=== PATIENT | female | born 1950 | race Caucasian/White ===

== ENCOUNTER 2019-09-24 18:04 | Emergency (ER) | payer MEDICARE, SELFPAY ==
--- NOTE | 2019-09-24 18:09 | CTR_ITS ---
PROCEDURE INFORMATION: Exam: CT Head Without Contrast Exam date and time: 09/24/2019 6:13 PM Age: 68 years old Clinical indication: Pain; Dizziness and numbness / parasthesia; Right; Headache TECHNIQUE: Imaging protocol: Computed tomography of the head without contrast. Total DLP: 762.97 mGy-cm Radiation optimization: All CT scans at this facility use at least one of these dose optimization techniques: automated exposure control; mA and/or kV adjustment per patient size (includes targeted exams where dose is matched to clinical indication); or iterative reconstruction. COMPARISON: No relevant prior studies available. FINDINGS: Small calcified lesion projecting in right temporal region may be extra-axial and represent meningioma. There is small amount of adjacent edema. There is mild low density in the periventricular white matter which may represent chronic small vessel ischemic disease in the appropriate clinical setting. There are prominent intracranial arterial calcifications. Mild basal ganglia calcifications are likely physiologic. There is mild cerebral cortical atrophy. Ventricles do not appear significantly dilated. No depressed calvarial fracture is demonstrated. Visualized paranasal sinuses and mastoid air cells demonstrate no significant opacification. CT/CT head wo con* [id number] IMPRESSION: Small calcified lesion projecting in right temporal region may be extra-axial and represent meningioma. There is small amount of adjacent edema. Follow-up MRI brain without/with IV contrast in 3 months is advised for further assessment if patient has no contraindications. Radiation Dose CTDIVOL = (mGy): DLP = 762.97 (mGy-cm)
[2019-09-24 18:44] VITALS: BP 141/63; PULSE 77; RESP 20; TEMP 36.8; O2SAT 96; BMI 24.4
--- NOTE | 2019-09-24 21:08 | ECG_ITS ---
Measurements Intervals [place] Rate: 64 P: 25 NC: 139 QRS: -1 QRSD: 71 T: -3 QT: 382 QTc: 395 SINUS RHYTHM MINIMAL VOLTAGE CRITERIA FOR LVH, CONSIDER NORMAL VARIANT [MEETS CRITERIA IN ONE OF: R(aVL), S(V1), R(V5), R(V5/V6)+S(V1)] NONSPECIFIC T-WAVE ABNORMALITY No previous ECG available for comparison Electronically Signed On 09-25-2019 14:38:25 AUTO TIRE RECAPPER by Orion Angel M.D. [email or web address]
--- NOTE | 2019-09-24 21:11 | W.ED.DIZZY ---
HPI - Dizziness General: Chief Complaint: Dizziness Stated Complaint: barnett,numbness Time Seen by Provider: 09/24/19 20:50 History of Present Illness: HPI Narrative: Patient complains about numbness right side of her face numbness right arm and also headache over the last 10 days. Has a history of cervical degenerative disc disease. Patient is also diabetic. Headache is not gone away. Does have some dizziness with rapid head movement. MD elicited complaint: dizziness Onset (ago): day(s) (10) Timing: gradual onset Exacerbating factors: movement/ambulation Associated symptoms: Reports no associated symptoms and headache(s); Denies chest pain, chills, nausea, nasal congestion or vomiting Associated neuro symptoms: Reports no associated symptoms Review of Systems Const: Denies: fever, chills or body aches Eyes: Denies: change in vision or blurry vision ENMT: Denies: throat pain or nasal congestion Card: Denies: chest pain or shortness of breath on exertion Resp: Denies: shortness of breath, productive cough or non-productive cough GI: Denies: abdominal pain, nausea or vomiting Musc: Reports: neck pain (chronic); Denies: extremity pain Skin/Breast: Denies: rash Neuro: Reports: headache and dizziness Psych: Denies: anxiety or depression Kalin/Lymph: Denies: easy bruising PFSH ED PFSH: Statuses (acute, chronic, etc) shown below reflect problem list status as previously entered and may not be historically accurate Social History Smoking and tobacco status: never smoked Physical Exam Const: COMMON NORMALS: no apparent distress, average body habitus and oriented x3 HENMT: COMMON NORMALS: normocephalic HEAD & SCALP: normal to inspection and normocephalic FACE & SINUS: normal facial exam Eye: COMMON NORMALS: conjunctivae normal GENERAL EYE: normal appearance of both eyes CONJUNCTIVA: Yes conjunctivae normal Neck/C-Spine: COMMON NORMALS: no JVD Chest: COMMONS NORMALS: inspection of chest normal Resp: COMMON NORMALS: normal respiratory effort and clear to auscultation bilaterally AUSCULTATION: clear to auscultation bilaterally Cardio: COMMON NORMALS: no JVD, regular rate and regular rhythm RATE: regular rate RHYTHM: regular rhythm GI: COMMON NORMALS: normal to inspection, nondistended, normoactive bowel sounds Extremity: COMMON NORMALS: normal to inspection and full ROM Neuro: COMMON NORMALS: oriented x3 Course Vital Signs: Vital signs: Vital Signs Temperature 98.2 F 09/24/19 18:44 Pulse Rate 77 09/24/19 18:44 Respiratory Rate 20 H 09/24/19 18:44 Blood Pressure 141/63 09/24/19 18:44 Pulse Oximetry 96 09/24/19 18:44 MDM - Dizziness MDM Narrative: Medical decision making narrative: Discussed case with Dr. Nixon. Waiting call from [facility] in [place]. Lab Data: Labs: Lab Results 09/24/19 09/24/19 Range/Units 21:15 21:15 WBC 12.0 H (4.0-10.0) 10^3/ uL RBC 4.43 (4.1-5.3) 10^6/u L Hgb 12.3 (11.5-15.3) g/dL Hct 36.9 L (37.0-47.0) % MCV 83.3 (81-99) fL MCH 27.8 L (28.0-34.0) pg MCHC 33.3 (30.0-36.0) g/dL RDW 13.7 (12.1-15.1) % Plt Count 488 H (130-400) 10^3/c mm MPV 9.6 (7.4-10.4) fL Neut % (Auto) 77.7 % Lymph % (Auto) 16.8 % [place] % (Auto) 4.4 % Eos % (Auto) 0.1 % Baso % (Auto) 0.3 % Neut # (Auto) 9.3 H (1.8-7.7) 10^3/u L Lymph # (Auto) 2.0 (0.8-4.8) 10^3/u L [place] # (Auto) 0.5 (0.2-0.9) 10^3/u L Eos # (Auto) 0.0 (0.0-0.8) 10^3/u L Baso # (Auto) 0.0 (0.0-0.1) 10^3/u L Nucleated RBC % (a uto) 0 % Nucleated RBCs # 0.0 /100WBC Sodium 137 (136-145) mmol/L Potassium 4.3 (3.5-5.1) mmol/L Chloride 102 (98-107) mmol/L Carbon Dioxide 23 (22-29) mmol/L Anion Gap 16.3 (5-19) BUN 19 (8-23) mg/dL Creatinine 0.5 (0.5-0.9) mg/dL GFR Calculation 122.0 (90-130) mL/min Glucose 164 H (74-106) mg/dL Calcium 10.4 H (8.8-10.2) mg/Dl Total Bilirubin 0.2 (0.15-1.2) mg/dL AST 16 (0-32) U/L ALT 8 (0-33) U/L Alkaline Phosphata se 96 (35-105) IU/L Total Protein 7.7 (6.6-8.7) g/dL Albumin 4.5 (3.5-5.2) g/dL Globulin 3.2 (1.3-4.6) g/dL Coding Level of Care Code ED Mine Exploration Engineer for Chg Fwd Exam Problem Focused
[2019-09-24 21:20] LABS: Basophils % 0.3 %; Eosinophils % 0.1 %; Hematocrit 36.9 % (37.0-47.0); Hemoglobin 12.3 g/dL (11.5-15.3); Lymphocytes % 16.8 %; Mean Corpuscular HGB Conc 33.3 g/dL (30.0-36.0); Mean Corpuscular Hemoglobin 27.8 pg (28.0-34.0); Mean Corpuscular Volume 83.3 fL (81-99); Mean Platelet Volume 9.6 fL (7.4-10.4); Monocytes # 0.5 10^3/uL (0.2-0.9); Monocytes % 4.4 %; Neutrophils # 9.3 10^3/uL (1.8-7.7); Neutrophils % 77.7 %; Nucleated Red Blood Cells % 0 %; Platelet Count 488 10^3/cmm (130-400); Red Blood Count 4.43 10^6/uL (4.1-5.3); Red Cell Distribution Width 13.7 % (12.1-15.1)
[2019-09-24 21:37] LABS: Alanine Aminotransferase 8 U/L (0-33); Albumin Level 4.5 g/dL (3.5-5.2); Alkaline Phosphatase 96 IU/L (35-105); Anion Gap 16.3 (5-19); Aspartate Amino Transferase 16 U/L (0-32); Blood Urea Nitrogen 19 mg/dL (8-23); Calcium 10.4 mg/Dl (8.8-10.2); Carbon Dioxide 23 mmol/L (22-29); Chloride 102 mmol/L (98-107); Globulin 3.2 g/dL (1.3-4.6); Glucose 164 mg/dL (74-106); Potassium 4.3 mmol/L (3.5-5.1); Sodium 137 mmol/L (136-145); Total Bilirubin 0.2 mg/dL (0.15-1.2); Total Protein 7.7 g/dL (6.6-8.7)
[2019-09-24] MEDS: ondansetron 4 MG Tablet PO (22:18)
[2019-09-24 22:29] LABS: Add Urine Microscopic? NO
[2019-09-24 22:42] LABS: Bilirubin Urine Neg (NEGATIVE); Blood Urine Neg (Negative); Glucose Urine UA Norm (Normal); Ketones Urine Negative (Negative); Leukocyte Esterase Urine Negative (Negative); Nitrate Urine Negative (Negative); Protein Urine Neg (Negative); Urine Appearance Clear (CLEAR); Urine Color Yellow (Yellow); Urobilinogen Urine Norm (Negative); pH Urine 6 (5-7)
[2019-09-24 22:59] VITALS: BP 146/73; PULSE 71; RESP 16; O2SAT 95
[2019-09-24 23:39] VITALS: BP 141/74; PULSE 68; RESP 18; O2SAT 97
--- NOTE | 2019-09-25 00:59 | ED_ITS ---
HPI - Dizziness General: Chief Complaint: Dizziness Stated Complaint: barnett,numbness Time Seen by Provider: 09/24/19 20:50 History of Present Illness: Exacerbating factors: movement/ambulation PFSH ED PFSH: Statuses (acute, chronic, etc) shown below reflect problem list status as previously entered and may not be historically accurate Social History Smoking and tobacco status: never smoked Course Vital Signs: Vital signs: Vital Signs Temperature 98.2 F 09/24/19 18:44 Pulse Rate 68 09/24/19 23:39 Respiratory Rate 18 09/24/19 23:39 Blood Pressure 141/74 09/24/19 23:39 Pulse Oximetry 97 09/24/19 23:39 MDM - Dizziness MDM Narrative: Medical decision making narrative: Discussed case with Dr. Nixon x2 Lab Data: Labs: Lab Results 09/24/19 09/24/19 09/24/19 Range/Units 21:15 21:15 22:12 WBC 12.0 H (4.0-10.0) 10^3/ uL RBC 4.43 (4.1-5.3) 10^6/u L Hgb 12.3 (11.5-15.3) g/dL Hct 36.9 L (37.0-47.0) % MCV 83.3 (81-99) fL MCH 27.8 L (28.0-34.0) pg MCHC 33.3 (30.0-36.0) g/dL RDW 13.7 (12.1-15.1) % Plt Count 488 H (130-400) 10^3/c mm MPV 9.6 (7.4-10.4) fL Neut % (Auto) 77.7 % Lymph % (Auto) 16.8 % [place] % (Auto) 4.4 % Eos % (Auto) 0.1 % Baso % (Auto) 0.3 % Neut # (Auto) 9.3 H (1.8-7.7) 10^3/u L Lymph # (Auto) 2.0 (0.8-4.8) 10^3/u L [place] # (Auto) 0.5 (0.2-0.9) 10^3/u L Eos # (Auto) 0.0 (0.0-0.8) 10^3/u L Baso # (Auto) 0.0 (0.0-0.1) 10^3/u L Nucleated RBC % (a uto) 0 % Nucleated RBCs # 0.0 /100WBC Sodium 137 (136-145) mmol/L Potassium 4.3 (3.5-5.1) mmol/L Chloride 102 (98-107) mmol/L Carbon Dioxide 23 (22-29) mmol/L Anion Gap 16.3 (5-19) BUN 19 (8-23) mg/dL Creatinine 0.5 (0.5-0.9) mg/dL GFR Calculation 122.0 (90-130) mL/min Glucose 164 H (74-106) mg/dL Calcium 10.4 H (8.8-10.2) mg/Dl Total Bilirubin 0.2 (0.15-1.2) mg/dL AST 16 (0-32) U/L ALT 8 (0-33) U/L Alkaline Phosphata se 96 (35-105) IU/L Total Protein 7.7 (6.6-8.7) g/dL Albumin 4.5 (3.5-5.2) g/dL Globulin 3.2 (1.3-4.6) g/dL Urine Color Yellow (Yellow) Urine Appearance Clear (CLEAR) Urine pH 6 (5-7) Ur Specific Gravit y 1.020 (1.005-1.030) Urine Protein Neg (Negative) Urine Glucose (UA) Norm (Normal) Urine Ketones Negative (Negative) Urine Occult Blood Neg (Negative) Urine Nitrate Negative (Negative) Urine Bilirubin Neg (NEGATIVE) Urine Urobilinogen Norm (Negative) mg/dL Ur Leukocyte Melissa ase Negative (Negative) Other Data: Other data: Discuss case with Dr. Owens bring up in [place] had to conversation with him he advises to have patient follow-up at PCP to get the MRI in 2 weeks to 2 months Discharge Plan Discharge Condition: Stable Prescriptions: New Zithromax Z-Higinio 250 mg tablet See Rx Instructions .ROUTE .COMPLEX Qty: 6 RF: 0 Zofran 4 mg tablet 4 mg PO Q8H 4 Days Qty: 12 RF: 0 Discharge Orders: Discharge Order (Routine); Ordered 09/24/19 Ordered By: Rigoberto Mejia Referrals: Emile Lua MD [Family Provider] - Discharge Diet: Usual diet Discharge Activity: Resume usual activity Patient Instructions: Meningioma (ED) Activity Restrictions/Additional Instructions: Follow-up with medical provider as directed. Take medications as prescribed. Return to the ER are your medical provider if condition worsens. Read and understand discharge instructions. Follow-up with [facility] for MRI the need to be performed in next 2weeks 2 months as per [facility] neurologist. Discharge Date/Time: 09/24/19 23:45 Coding Level of Care Code ED Celebrity Chef Entrepreneur Media Personality for Magno Berrios
== END 2019-09-24 23:45 ==
PROVIDERS: Nurse Practitioner Family; Emergency Provider Emergency Medicine; Family Provider Family Medicine
DX: R42 Dizziness and giddiness (principal)
CPT/HCPCS: 36415; 70450; 80053; 81003; 85025; 93005; 99282; Q0162

== ENCOUNTER 2023-04-02 21:43 | Emergency (ER) | payer MEDICARE, SELFPAY ==
[2023-04-02 21:45] VITALS: BP 145/71; PULSE 80; RESP 16; TEMP 36.7; O2SAT 95; BMI 18.9
--- NOTE | 2023-04-02 21:54 | W.ED.HA ---
Documented by User: Jan Lemus MD 04/10/23 11:52 HPI - Headache General: Chief Complaint: Headache Stated Complaint: Head Ache Time Seen by Provider: 04/02/23 21:53 History of Present Illness: Ms. Grossman is a 72-year-old lady presenting to the emergency department for evaluation of headache. She does not have frequent history of headaches. Onset of symptoms acute without known specific provoking event on the morning of 03/31. Described an unsteady drunk like feeling associated with posterior headache. Since that time symptoms have persisted. Intermittently has had nausea and generalized malaise. No focal weakness or vision changes. Denies other signs systemic illness. Intensity symptoms is moderate to severe. No other specific changes in health, exacerbating, or alleviating factors identified. Per review of documentation patient had a CT head in September 2019 which showed mild abnormality and recommended 3-month follow-up with MRI. She does not recall being told about this and did not have an outpatient MRI. Onset (ago): day(s) Onset description: suddenly Location: occipital Quality & Timing: squeezing and pressure Exacerbating factors: none Relieving factors: nothing Review of Systems General: Reports: 10 or more systems reviewed and unremarkable except in HPI and below PFSH ED PFSH: Medical History (Updated 04/02/23 @ 22:45 by Jan Lemus MD) No significant past medical history Surgical History (Updated 04/02/23 @ 22:17 by Jan Lemus MD) No significant past surgical history Social History Smoking and tobacco status: never smoked Physical Exam Const: COMMON NORMALS: patient oriented x3 and alert GENERAL APPEARANCE: cooperative and well developed HENMT: COMMON NORMALS: normocephalic and atraumatic HEAD & SCALP: normocephalic and atraumatic THROAT: posterior oropharynx normal Eye: COMMON NORMALS: conjunctivae normal CONJUNCTIVA: Yes conjunctivae normal SCLERA: sclerae normal Neck/C-Spine: COMMON NORMALS: supple GENERAL: Yes trachea midline Resp: COMMON NORMALS: normal respiratory effort and clear to auscultation bilaterally EFFORT & INSPECTION: Yes able to speak in complete sentences AUSCULTATION: clear to auscultation bilaterally Cardio: COMMON NORMALS: regular rate and regular rhythm RATE: regular rate RHYTHM: regular rhythm GI: COMMON NORMALS: Soft to palpation PALPATION: Yes Soft to palpation and No Tenderness to palpation present (GI) Extremity: GENERAL: Yes normal exam except as noted and No edema Neuro: COMMON NORMALS: patient oriented x3, CN's II-XII intact bilaterally, moves all extremities, no focal motor deficits and no sensory deficits noted SENSORIUM/ORIENTATION: Yes alert and No Orientation impaired Psych: COMMON NORMALS: mental status grossly normal and Normal thought process present THOUGHT PROCESS: Normal thought process present Course Vital Signs: Vital signs: Vital Signs Temperature 98.0 F 04/02/23 21:45 Pulse Rate 80 04/02/23 21:45 Respiratory Rate 16 04/02/23 21:45 Blood Pressure 145/71 04/02/23 21:45 Pulse Oximetry 95 04/02/23 21:45 Oxygen Delivery Me thod Room Air 04/02/23 21:45 MDM - Headache Medical Decision Making 72-year-old lady presenting with headache. Exam as above. Patient is nontoxic and there are no focal neurologic deficits. No meningismus Laboratory studies and imaging ordered. Headache treatment ordered. Handed off to Dr. Henning pending completion of ED evaluation and reassessment of patient condition for disposition. Medical Records I reviewed the patient's medical records. Lab Data I reviewed the patient's lab results. 04/02/23 22:46 04/02/23 22:[address] 04/02/23 22:06 IMPRESSION: 1. No acute abnormality of the brain. 2. Stable partially calcified meningioma in the right middle cranial fossa. Mild localized surrounding edema is also stable. 3. Stable mild atrophy of the brain parenchyma. 4. Stable mild chronic white matter microangiopathic change. 5. Incidental/nonacute findings are listed in the report. Laboratory Results WBC 10.5 10^3/uL (4.0-10.0) H 04/02/23 22:46 RBC 4.50 10^6/uL (4.1-5.3) 04/02/23 22:46 Hgb 12.2 g/dL (11.5-15.3) 04/02/23 22:46 Hct 37.8 % (37.0-47.0) 04/02/23 22:46 MCV 84.0 fl (81-99) 04/02/23 22:46 MCH 27.1 pg (28.0-34.0) L 04/02/23 22:46 MCHC 32.3 g/dL (30.0-36.0) 04/02/23 22:46 RDW 15.5 % (12.1-15.1) H 04/02/23 22:46 Plt Count 448 10^3/cmm (130-400) H 04/02/23 22:46 MPV 10.5 fL (7.4-10.4) H 04/02/23 22:46 Neut % (Auto) 51.9 % 04/02/23 22:46 Lymph % (Auto) 35.8 % 04/02/23 22:46 Cass % (Auto) 9.6 % 04/02/23 22:46 Eos % (Auto) 1.7 % 04/02/23 22:46 Baso % (Auto) 0.7 % 04/02/23 22:46 Neut # (Auto) 5.44 10^3/uL (1.8-7.7) 04/02/23 22:46 Lymph # (Auto) 3.8 10^3/uL (0.8-4.8) 04/02/23 22:46 Cass # (Auto) 1.0 10^3/uL (0.2-0.9) H 04/02/23 22:46 Eos # (Auto) 0.2 10^3/uL (0.0-0.8) 04/02/23 22:46 Baso # (Auto) 0.1 10^3/uL (0.0-0.1) 04/02/23 22:46 Nucleated RBC % (auto) 0 % 04/02/23 22:46 Nucleated RBCs # 0.0 /100WBC 04/02/23 22:46 Sodium 139 mmol/L (136-145) 04/02/23 22:46 Potassium 3.9 mmol/L (3.5-5.1) 04/02/23 22:46 Chloride 105 mmol/L (98-107) 04/02/23 22:46 Carbon Dioxide 25 mmol/L (22-29) 04/02/23 22:46 Anion Gap 12.9 (5-19) 04/02/23 22:46 BUN 22 mg/dL (8-23) 04/02/23 22:46 Creatinine 0.8 mg/dL (0.5-0.9) 04/02/23 22:46 GFR Calculation Not Reportable 04/02/23 22:46 Glucose 170 mg/dL (65-115) H 04/02/23 22:46 Calculated Osmolality 295 mOsm/kg (285-295) 04/02/23 22:46 Calcium 9.7 mg/dL (8.5-10.5) 04/02/23 22:46 Magnesium 2.2 mg/dL (1.7-2.3) 04/02/23 22:46 Total Bilirubin 0.2 mg/dL (0.15-1.2) 04/02/23 22:46 AST 18 U/L (0-32) 04/02/23 22:46 ALT 14 U/L (0-33) 04/02/23 22:46 Alkaline Phosphatase 92 U/L (35-105) 04/02/23 22:46 C-Reactive Protein 3.0 mg/L (0.0-4.9) 04/02/23 22:46 Total Protein 7.5 g/dL (6.6-8.7) 04/02/23 22:46 Albumin 4.3 g/dL (3.5-5.2) 04/02/23 22:46 Globulin 3.2 g/dL (1.3-4.6) 04/02/23 22:46 TSH 2.66 uIU/mL (0.27-4.20) 04/02/23 22:46 Urine Color Light yellow (Yellow) 04/02/23 23:25 Urine Appearance Clear (CLEAR) 04/02/23 23:25 Urine pH 7 (5-7) 04/02/23 23:25 Ur Specific [place] 1.010 (1.005-1.030) 04/02/23 23:25 Urine Protein Neg (Negative) 04/02/23 23:25 Urine Glucose (UA) 4+ (Normal) H 04/02/23 23:25 Urine Ketones Negative (Negative) 04/02/23 23:25 Urine Blood Neg (Negative) 04/02/23 23:25 Urine Nitrate Negative (Negative) 04/02/23 23:25 Urine Bilirubin Neg (Negative) 04/02/23 23:25 Urine Urobilinogen Neg mg/dL (Negative) 04/02/23 23:25 Ur Leukocyte Esterase 1+ (Negative) H 04/02/23 23:25 Urine RBC None /hpf (0-2) 04/02/23 23:25 Urine WBC 0-4 /hpf (0-5) H 04/02/23 23:25 Ur Squamous Epith Cells None /hpf (0-5) 04/02/23 23:25 Amorphous Sediment Not Reportable 04/02/23 23:25 Urine Bacteria Trace /hpf (NONE) 04/02/23 23:25 Nasal Influ A H1 2009 PCR Not detected (NOT DETECT) 04/02/23 23:14 Adenovirus (PCR) Not detected (NOT DETECT) 04/02/23 23:14 C. pneumoniae DNA (PCR) Not detected (NOT DETECT) 04/02/23 23:14 Coronavirus 229E (PCR) Not detected (NOT DETECT) 04/02/23 23:14 Human Metapneumovir PCR Not detected (NOT DETECT) 04/02/23 23:14 Influenza A (H1) PCR Not detected (NOT DETECT) 04/02/23 23:14 Influenza A (H3) PCR Not detected (NOT DETECT) 04/02/23 23:14 Influenza Type A (PCR) Not detected (NOT DETECT) 04/02/23 23:14 Influenza Type B (PCR) Not detected (NOT DETECT) 04/02/23 23:14 M. pneumoniae (PCR) Not detected (NOT DETECT) 04/02/23 23:14 Parainfluenza 1 (PCR) Not detected (NOT DETECT) 04/02/23 23:14 Parainfluenza 2 (PCR) Not detected (NOT DETECT) 04/02/23 23:14 Parainfluenza 3 (PCR) Not detected (NOT DETECT) 04/02/23 23:14 Parainfluenza 4 (PCR) Not detected (NOT DETECT) 04/02/23 23:14 RSV Type A (PCR) Not detected (NOT DETECT) 04/02/23 23:14 RSV Type B (PCR) Not detected (NOT DETECT) 04/02/23 23:14 Entero/Rhino (PCR) Not detected (NOT DETECT) 04/02/23 23:14 SARS-CoV-2 (PCR) Not detected (NOT DETECT) 04/02/23 23:14 Discharge Plan Discharge Patient Disposition: Home Clinical Impression: Headache Condition: Stable Prescriptions: No Action Zithromax Z-Higinio 250 mg tablet See Rx Instructions .ROUTE .COMPLEX Qty: 6 0RF Rx Instructions: take 500 mg today (day 1), then 250 mg for 4 days (days 2-5) Discharge Orders: Discharge ED (Routine); Ordered 04/03/23 Ordered By: Severo Henning Referrals: Emile Lua MD [Staff Physician] - Discharge Diet: Usual diet Discharge Activity: Increase activity as tolerated Patient Instructions: Acute Headache (ED), Opioid Safety, Pain Management Activity Restrictions/Additional Instructions: Thank you for visiting the emergency department. You were seen and evaluated for headache. We are pleased that you had improvement with treatment in the emergency department. Ensure that you are staying hydrated. You may use [id number] medications such as acetaminophen and ibuprofen for pain however please do not exceed the daily recommended dosage as listed on the packaging and please keep in mind that many namebrand medications contain the same active ingredients. Please avoid these medications if previously instructed to do so by another physician due to other underlying medical condition. Follow-up with a primary care provider. Return for uncontrolled symptoms, any new neurologic symptoms, inability to tolerate oral intake, fevers, neck stiffness, or anything else that you are concerned about and feel needs emergency department evaluation. Coding Level of Care Code ED Social Welfare Administrator for [facility] Documented by User: Severo Henning MD 04/03/23 00:37 HPI - Headache General: Chief Complaint: Headache Stated Complaint: Head Ache Time Seen by Provider: 04/02/23 21:53 [facility] ED PFSH: Medical History (Updated 04/02/23 @ 22:45 by Jan Lemus MD) No significant past medical history Surgical History (Updated 04/02/23 @ 22:17 by Jan Lemus MD) No significant past surgical history Social History Smoking and tobacco status: never smoked Course Vital Signs: Vital signs: Vital Signs Temperature 98.0 F 04/02/23 21:45 Pulse Rate 80 04/02/23 21:45 Respiratory Rate 16 04/02/23 21:45 Blood Pressure 145/71 04/02/23 21:45 Pulse Oximetry 95 04/02/23 21:45 Oxygen Delivery Me thod Room Air 04/02/23 21:45 MDM - Headache Medical Decision Making 72-year-old lady presenting with headache. Exam as above. Patient is nontoxic and there are no focal neurologic deficits. No meningismus Laboratory studies and imaging ordered. Headache treatment ordered. Handed off to Dr. Henning pending completion of ED evaluation and reassessment of patient condition for disposition. Patient presents here with headache head CT blood work are all normal patient stable for discharge patient follow-up PCP and return if worsening Lab Data 04/02/23 22:46 04/02/23 22:[address] 04/02/23 22:06 IMPRESSION: 1. No acute abnormality of the brain. 2. Stable partially calcified meningioma in the right middle cranial fossa. Mild localized surrounding edema is also stable. 3. Stable mild atrophy of the brain parenchyma. 4. Stable mild chronic white matter microangiopathic change. 5. Incidental/nonacute findings are listed in the report. Laboratory Results WBC 10.5 10^3/uL (4.0-10.0) H 04/02/23 22:46 RBC 4.50 10^6/uL (4.1-5.3) 04/02/23 22:46 Hgb 12.2 g/dL (11.5-15.3) 04/02/23 22:46 Hct 37.8 % (37.0-47.0) 04/02/23 22:46 MCV 84.0 fl (81-99) 04/02/23 22:46 MCH 27.1 pg (28.0-34.0) L 04/02/23 22:46 MCHC 32.3 g/dL (30.0-36.0) 04/02/23 22:46 RDW 15.5 % (12.1-15.1) H 04/02/23 22:46 Plt Count 448 10^3/cmm (130-400) H 04/02/23 22:46 MPV 10.5 fL (7.4-10.4) H 04/02/23 22:46 Neut % (Auto) 51.9 % 04/02/23 22:46 Lymph % (Auto) 35.8 % 04/02/23 22:46 Cass % (Auto) 9.6 % 04/02/23 22:46 Eos % (Auto) 1.7 % 04/02/23 22:46 Baso % (Auto) 0.7 % 04/02/23 22:46 Neut # (Auto) 5.44 10^3/uL (1.8-7.7) 04/02/23 22:46 Lymph # (Auto) 3.8 10^3/uL (0.8-4.8) 04/02/23 22:46 Cass # (Auto) 1.0 10^3/uL (0.2-0.9) H 04/02/23 22:46 Eos # (Auto) 0.2 10^3/uL (0.0-0.8) 04/02/23 22:46 Baso # (Auto) 0.1 10^3/uL (0.0-0.1) 04/02/23 22:46 Nucleated RBC % (auto) 0 % 04/02/23 22:46 Nucleated RBCs # 0.0 /100WBC 04/02/23 22:46 Sodium 139 mmol/L (136-145) 04/02/23 22:46 Potassium 3.9 mmol/L (3.5-5.1) 04/02/23 22:46 Chloride 105 mmol/L (98-107) 04/02/23 22:46 Carbon Dioxide 25 mmol/L (22-29) 04/02/23 22:46 Anion Gap 12.9 (5-19) 04/02/23 22:46 BUN 22 mg/dL (8-23) 04/02/23 22:46 Creatinine 0.8 mg/dL (0.5-0.9) 04/02/23 22:46 GFR Calculation Not Reportable 04/02/23 22:46 Glucose 170 mg/dL (65-115) H 04/02/23 22:46 Calculated Osmolality 295 mOsm/kg (285-295) 04/02/23 22:46 Calcium 9.7 mg/dL (8.5-10.5) 04/02/23 22:46 Magnesium 2.2 mg/dL (1.7-2.3) 04/02/23 22:46 Total Bilirubin 0.2 mg/dL (0.15-1.2) 04/02/23 22:46 AST 18 U/L (0-32) 04/02/23 22:46 ALT 14 U/L (0-33) 04/02/23 22:46 Alkaline Phosphatase 92 U/L (35-105) 04/02/23 22:46 C-Reactive Protein 3.0 mg/L (0.0-4.9) 04/02/23 22:46 Total Protein 7.5 g/dL (6.6-8.7) 04/02/23 22:46 Albumin 4.3 g/dL (3.5-5.2) 04/02/23 22:46 Globulin 3.2 g/dL (1.3-4.6) 04/02/23 22:46 TSH 2.66 uIU/mL (0.27-4.20) 04/02/23 22:46 Urine Color Light yellow (Yellow) 04/02/23 23:25 Urine Appearance Clear (CLEAR) 04/02/23 23:25 Urine pH 7 (5-7) 04/02/23 23:25 Ur Specific [place] 1.010 (1.005-1.030) 04/02/23 23:25 Urine Protein Neg (Negative) 04/02/23 23:25 Urine Glucose (UA) 4+ (Normal) H 04/02/23 23:25 Urine Ketones Negative (Negative) 04/02/23 23:25 Urine Blood Neg (Negative) 04/02/23 23:25 Urine Nitrate Negative (Negative) 04/02/23 23:25 Urine Bilirubin Neg (Negative) 04/02/23 23:25 Urine Urobilinogen Neg mg/dL (Negative) 04/02/23 23:25 Ur Leukocyte Esterase 1+ (Negative) H 04/02/23 23:25 Urine RBC None /hpf (0-2) 04/02/23 23:25 Urine WBC 0-4 /hpf (0-5) H 04/02/23 23:25 Ur Squamous Epith Cells None /hpf (0-5) 04/02/23 23:25 Amorphous Sediment Not Reportable 04/02/23 23:25 Urine Bacteria Trace /hpf (NONE) 04/02/23 23:25 Nasal Influ A H1 2008 PCR Not detected (NOT DETECT) 04/02/23 23:14 Adenovirus (PCR) Not detected (NOT DETECT) 04/02/23 23:14 C. pneumoniae DNA (PCR) Not detected (NOT DETECT) 04/02/23 23:14 Coronavirus 229E (PCR) Not detected (NOT DETECT) 04/02/23 23:14 Human Metapneumovir PCR Not detected (NOT DETECT) 04/02/23 23:14 Influenza A (H1) PCR Not detected (NOT DETECT) 04/02/23 23:14 Influenza A (H3) PCR Not detected (NOT DETECT) 04/02/23 23:14 Influenza Type A (PCR) Not detected (NOT DETECT) 04/02/23 23:14 Influenza Type B (PCR) Not detected (NOT DETECT) 04/02/23 23:14 M. pneumoniae (PCR) Not detected (NOT DETECT) 04/02/23 23:14 Parainfluenza 1 (PCR) Not detected (NOT DETECT) 04/02/23 23:14 Parainfluenza 2 (PCR) Not detected (NOT DETECT) 04/02/23 23:14 Parainfluenza 3 (PCR) Not detected (NOT DETECT) 04/02/23 23:14 Parainfluenza 4 (PCR) Not detected (NOT DETECT) 04/02/23 23:14 RSV Type A (PCR) Not detected (NOT DETECT) 04/02/23 23:14 RSV Type B (PCR) Not detected (NOT DETECT) 04/02/23 23:14 Entero/Rhino (PCR) Not detected (NOT DETECT) 04/02/23 23:14 SARS-CoV-2 (PCR) Not detected (NOT DETECT) 04/02/23 23:14 Discharge Plan Discharge Patient Disposition: Home Clinical Impression: Headache Condition: Stable Prescriptions: No Action Zithromax Z-Higinio 250 mg tablet See Rx Instructions .ROUTE .COMPLEX Qty: 6 0RF Rx Instructions: take 500 mg today (day 1), then 250 mg for 4 days (days 2-5) Discharge Orders: Discharge ED (Routine); Ordered 04/03/23 Ordered By: Severo Henning Referrals: Emile Lua MD [Staff Physician] - Discharge Diet: Usual diet Discharge Activity: Increase activity as tolerated Patient Instructions: Acute Headache (ED), Opioid Safety, Pain Management Activity Restrictions/Additional Instructions: Thank you for visiting the emergency department. You were seen and evaluated for headache. We are pleased that you had improvement with treatment in the emergency department. Ensure that you are staying hydrated. You may use [id number] medications such as acetaminophen and ibuprofen for pain however please do not exceed the daily recommended dosage as listed on the packaging and please keep in mind that many namebrand medications contain the same active ingredients. Please avoid these medications if previously instructed to do so by another physician due to other underlying medical condition. Follow-up with a primary care provider. Return for uncontrolled symptoms, any new neurologic symptoms, inability to tolerate oral intake, fevers, neck stiffness, or anything else that you are concerned about and feel needs emergency department evaluation. Coding Level of Care Code ED Social Welfare Administrator for [facility]
--- NOTE | 2023-04-02 22:06 | CTR_ITS ---
PROCEDURE INFORMATION: Exam: CT Head Without Contrast Exam date and time: 04/02/2023 10:46 PM Age: 72 years old Clinical indication: Pain; Malaise or fatigue; Headache not specified; Additional info: Headache, unsteady feeling, nausea TECHNIQUE: Imaging protocol: Computed tomography of the head without contrast. Sagittal and coronal reformatted images were created and reviewed. Radiation optimization: All CT scans at this facility use at least one of these dose optimization techniques: automated exposure control; mA and/or kV adjustment per patient size (includes targeted exams where dose is matched to clinical indication); or iterative reconstruction. REPORTING DATA: Count of CT and Cardiac NM exams in prior 12 months: This patient has received 0 known CTs and 0 known cardiac nuclear medicine studies in the 12 months prior to the current study. COMPARISON: CT head wo con* [id number] 09/24/2019 6:35 PM RADIATION DOSE METRICS: Total DLP (mGy-cm): 1083.58 FINDINGS: Brain: No acute intracranial hemorrhage. No acute infarct. Mcguire-white matter differentiation is preserved. No cerebral edema. No extra-axial fluid collections. No midline shift. Stable partially calcified meningioma in the right middle cranial fossa measuring 7.8 x 9.4 mm. Mild localized surrounding edema is also stable. Stable mild atrophy of the brain parenchyma. Stable mildly decreased attenuation in the deep white matter, consistent with mild chronic microangiopathic change. Cerebral ventricles: No hydrocephalus. Paranasal sinuses: Visualized paranasal sinuses are clear. Mastoid air cells: Visualized mastoid air cells are clear. Orbital cavities: Globes and lenses, extraocular muscles, and optic nerves are intact bilaterally. No acute intraorbital abnormality. Bones/joints: No acute fracture. Soft tissues: No acute abnormality of the extracranial soft tissues. Vasculature: Atherosclerotic changes in the visualized arteries. CT/CT head wo con* [id number] IMPRESSION: 1. No acute abnormality of the brain. 2. Stable partially calcified meningioma in the right middle cranial fossa. Mild localized surrounding edema is also stable. 3. Stable mild atrophy of the brain parenchyma. 4. Stable mild chronic white matter microangiopathic change. 5. Incidental/nonacute findings are listed in the report.
[2023-04-02] MEDS: sodium chloride 0.9% 1,000 ML 999 ML IV (22:29)
[2023-04-02] MEDS: ketorolac 30 mg/mL INJ 15 MG IVP (22:30)
[2023-04-02] MEDS: metoclopramide 5 mg/mL SDV 2 mL IVP (22:33)
[2023-04-02 23:03] LABS: Basophils # 0.1 10^3/uL (0.0-0.1); Basophils % 0.7 %; Eosinophils # 0.2 10^3/uL (0.0-0.8); Eosinophils % 1.7 %; Hematocrit 37.8 % (37.0-47.0); Hemoglobin 12.2 g/dL (11.5-15.3); Lymphocytes # 3.8 10^3/uL (0.8-4.8); Lymphocytes % 35.8 %; Mean Corpuscular HGB Conc 32.3 g/dL (30.0-36.0); Mean Corpuscular Hemoglobin 27.1 pg (28.0-34.0); Mean Platelet Volume 10.5 fL (7.4-10.4); Monocytes % 9.6 %; Neutrophils # 5.44 10^3/uL (1.8-7.7); Neutrophils % 51.9 %; Nucleated Red Blood Cells % 0 %; Platelet Count 448 10^3/cmm (130-400); Red Cell Distribution Width 15.5 % (12.1-15.1); White Blood Count 10.5 10^3/uL (4.0-10.0)
[2023-04-02 23:34] LABS: Alanine Aminotransferase 14 U/L (0-33); Albumin Level 4.3 g/dL (3.5-5.2); Alkaline Phosphatase 92 U/L (35-105); Anion Gap 12.9 (5-19); Aspartate Amino Transferase 18 U/L (0-32); Blood Urea Nitrogen 22 mg/dL (8-23); Calcium 9.7 mg/dL (8.5-10.5); Carbon Dioxide 25 mmol/L (22-29); Chloride 105 mmol/L (98-107); Globulin 3.2 g/dL (1.3-4.6); Glucose 170 mg/dL (65-115); Magnesium 2.2 mg/dL (1.7-2.3); Osmolality Calculated 295 mOsm/kg (285-295); Potassium 3.9 mmol/L (3.5-5.1); Sodium 139 mmol/L (136-145); Thyroid Stimulating Hormone 2.66 uIU/mL (0.27-4.20); Total Bilirubin 0.2 mg/dL (0.15-1.2); Total Protein 7.5 g/dL (6.6-8.7)
[2023-04-02 23:41] LABS: Add Urine Microscopic? YES; Bilirubin Urine Neg (Negative); Blood Urine Neg (Negative); Glucose Urine UA 4+ (Normal); Ketones Urine Negative (Negative); Leukocyte Esterase Urine 1+ (Negative); Nitrate Urine Negative (Negative); Protein Urine Neg (Negative); Urine Appearance Clear (CLEAR); Urine Color Light yellow (Yellow); Urobilinogen Urine Neg (Negative); pH Urine 7 (5-7)
[2023-04-02 23:42] LABS: Add Urine Culture? No; Bacteria Urine TRACE /hpf; WBC Urine 0-4 /hpf (0-5)
[2023-04-03 01:14] LABS: Adenovirus Not Detected (NOT DETECT); Chlamydia Pneumoniae Not Detected (NOT DETECT); Coronavirus 229E,HKU1,NL63,OC4 Not Detected (NOT DETECT); Human Metapneumovirus Not Detected (NOT DETECT); Human Rhinovirus/Enterovirus Not Detected (NOT DETECT); Influenza A Not Detected (NOT DETECT); Influenza A H1 Not Detected (NOT DETECT); Influenza A H1-2009 Not Detected (NOT DETECT); Influenza A H3 Not Detected (NOT DETECT); Influenza B Not Detected (NOT DETECT); Mycoplasma Pneumoniae Not Detected (NOT DETECT); Parainfluenza Virus Type 1 Not Detected (NOT DETECT); Parainfluenza Virus Type 2 Not Detected (NOT DETECT); Parainfluenza Virus Type 3 Not Detected (NOT DETECT); Parainfluenza Virus Type 4 Not Detected (NOT DETECT); Respiratory Syncytial Virus A Not Detected (NOT DETECT); Respiratory Syncytial Virus B Not Detected (NOT DETECT); SARS-COV-2 Not Detected (NOT DETECT)
== END 2023-04-03 00:43 | disposition home or self-care (01) ==
PROVIDERS: Emergency Medicine; Emergency Provider Emergency Medicine
DX: R51.9 Headache, unspecified (principal); Z20.822 Contact with and (suspected) exposure to COVID-19
CPT/HCPCS: 36415; 70450; 80053; 81001; 83735; 84443; 85025; 86140; 87486; 87581; 87633; 96365; 96375; 99285; J1885; J2765; J3475; J7030

== ENCOUNTER 2024-07-21 18:50 | Emergency (ER) | payer MEDICARE, SELFPAY ==
[2024-07-21 18:53] VITALS: BP 152/67; PULSE 73; TEMP 36.6; O2SAT 98
--- NOTE | 2024-07-21 19:18 | CTR_ITS ---
PROCEDURE INFORMATION: Exam: CT Head Without Contrast Exam date and time: 07/21/2024 7:36 PM Age: 73 years old Clinical indication: Dizzy, sudden onset headache TECHNIQUE: Imaging protocol: Computed tomography of the head without contrast. Radiation optimization: All CT scans at this facility use at least one of these dose optimization techniques: automated exposure control; mA and/or kV adjustment per patient size (includes targeted exams where dose is matched to clinical indication); or iterative reconstruction. COMPARISON: CT head wo con* [id number] 04/02/2023 10:46 PM RADIATION DOSE METRICS: Total DLP (mGy-cm): 1025.68 FINDINGS: Brain: There is mild diffuse cerebral atrophy present, consistent with this patient's age. Periventricular and subcortical white matter low densities are present which at this age likely represent microvascular ischemic change. No evidence for large acute ischemic infarction. Please note acute ischemia can be occult by head CT. No evidence for acute intracranial hemorrhage. Cerebral ventricles: No ventriculomegaly. Paranasal sinuses: Visualized sinuses are unremarkable. No fluid levels. Mastoid air cells: Visualized mastoid air cells are well aerated. Bones: Chronic contour abnormality of the right lamina papyracea similar to the prior study. Soft tissues: Unremarkable. Vasculature: Calcified plaque is present within the carotid siphons. CT/CT head wo con* [id number] IMPRESSION: There are senescent changes of the brain as described above. No evidence for large acute ischemic infarction or acute intracranial injury.
--- NOTE | 2024-07-21 19:20 | ED_ITS ---
HPI - Recheck/Abnormal Lab/Rx 2 General: Chief Complaint: Recheck/Abnormal Lab/Rx Stated Complaint: abnormal labs (glucose) Time Seen by Provider: 07/21/24 19:03 Source: patient and family Mode of arrival: ambulatory Limitations: language barrier History of Present Illness: Patient is a 73-year-old female who presents to the emergency department referred from urgent care for blood glucose reading of 500. However here in triage, blood glucose via Accu-Chek was 110. Of note she was complaining of a sudden onset occipital headache that began Saturday, no trauma and was not exerting herself upon noticing it. Never had prior headaches in the past. No history of migraines. No history of stroke or cardiac issues, just has a history of diabetes for which she takes metformin. Family is the primary historian as patient is solely Brazilian-speaking, family is translating. Patient also had been complaining of dizziness, though no visual changes or other neurological dysfunction. She does not take her blood sugars regularly, no history of DKA or coma. No urinary symptoms, chest pain, shortness of breath, or other symptoms at this time. MD complaint: abnormal lab (Reported value of 500 blood glucose at urgent care) Initial visit (ago): hour(s) Related Data Home Medications Medication Instructions Recorded Confirmed acetaminophen 325 mg capsule 325 mg PO QID PRN 07/21/24 07/21/24 (Tylenol) lisinopril 20 mg tablet 20 mg PO DAILY 07/21/24 07/21/24 metformin 850 mg tablet 850 mg PO DAILY 07/21/24 07/21/24 sitagliptin phosphate 25 mg tablet 25 mg PO DAILY 07/21/24 07/21/24 (Januvia) Allergies Allergy/AdvReac Type Severity Reaction Status Date / Time No Known Allergies Allergy Verified 07/21/24 19:00 Review of Systems 2 General: Reports: 10 or more systems reviewed and unremarkable except in HPI and below Const: Reports: other (Reported abnormal lab); Denies: fever(s), chills or fatigue Eyes: Denies: change in vision ENMT: Denies: throat pain, ear or mastoid pain or nasal discharge Card: Denies: chest pain, palpitations, swelling of feet/ankles or lightheadedness Resp: Denies: dyspnea, productive cough or wheezing GI: Denies: abdominal pain, nausea, vomiting, diarrhea or constipation : Denies: flank pain, difficulty voiding, dysuria or urinary frequency Musc: Denies: neck pain, back pain or joint pain Skin/Breast: Denies: rash Neuro: Reports: headache(s) and dizziness; Denies: numbness in extremities or weakness in extremities PFSH ED 2 PFSH: Medical History No significant past medical history Surgical History No significant past surgical history Social History Smoking and tobacco/nicotine status: never used tobacco/nicotine Physical Exam 2 Const: COMMON NORMALS: no acute distress, patient oriented x3 and no limitations EXAM LIMITATIONS: language barrier GENERAL APPEARANCE: c ooperative, comfortable and well developed ORIENTATION/CONSCIOUSNESS: Yes awake, Yes oriented to person, Yes oriented to place and Yes oriented to time OTHER: Brazilian-speaking HENMT: COMMON NORMALS: normocephalic, atraumatic and hearing grossly normal bilaterally HEAD & SCALP: normocephalic and atraumatic Eye: COMMON NORMALS: Equal, round and reactive pupils present, EOMs intact bilaterally and conjunctivae normal CONJUNCTIVA: Yes conjunctivae normal P UPIL: Yes Equal, round and reactive pupils present Neck/C-Spine: COMMON NORMALS: full ROM, supple and no JVD Resp: COMMON NORMALS: normal respiratory effort, No retractions, No use of accessory muscles and clear to auscultation bilaterally AUSCULTATION: clear to auscultation bilaterally Cardio: COMMON NORMALS: no JVD, regular rate, regular rhythm, No clicks present (Cardio), No murmurs present (Cardio) and No rub (Cardio) RATE: r egular rate RHYTHM: regular rhythm GI: COMMON NORMALS: Normal to inspection, nondistended, normoactive bowel sounds present, Soft to palpation and non-tender AUSCULTATION: Yes normoactive bowel sounds PALPATION: Yes Soft to palpation RECTAL EXAM: d eferred Extremity: COMMON NORMALS: normal to inspection, full ROM and capillary refill normal Neuro: COMMON NORMALS: patient oriented x3, CN's II-XII intact bilaterally, moves all extremities, no focal motor deficits and no sensory deficits noted SENSORIUM/ORIENTATION: Yes oriented to person, Yes oriented to place and Yes oriented to time Skin: COMMON NORMALS: no rashes or lesions noted GENERAL SKIN EXAM: no rashes or lesions noted Course 2 Vital Signs: Vital signs: Vital Signs Temperature 97.8 F 07/21/24 18:53 Pulse Rate 89 07/21/24 20:59 Respiratory Rate 14 07/21/24 20:59 Blood Pressure 138/65 07/21/24 20:59 Pulse Oximetry 96 07/21/24 20:59 Oxygen Delivery Me thod Room Air 07/21/24 19:54 MDM - Recheck/Abnormal Lab/Rx Medical Decision Making Patient was sent from urgent care as they had a high blood glucose reading there were 500, though upon further questioning here patient, through translation, had stated that they only did a urinary test and that it just showed high glucose and ketones. Only symptoms patient had were headache for the past couple days with dizziness. Here her blood sugar in triage was 110 by Accu-Chek, and was 96 on CMP. Her CBC was negative, rest of her CMP normal, and negative serum ketones. CT head was negative. I think that her symptoms related to a migraine with aura, will treat conservatively. She lives in [place] and I instructed her to follow-up with primary care back home, and return or present to nearest ER with any new or worsening of symptoms. All other questions and concerns addressed at this time. Lab Data 07/21/24 19:29 07/21/24 19:[address] 07/21/24 19:18 IMPRESSION: There are senescent changes of the brain as described above. No evidence for large acute ischemic infarction or acute intracranial injury. Laboratory Results WBC 12.19 10^3/uL (3.29-11.43) H 07/21/24 19: RBC 4.56 10^6/uL (3.85-5.65) 07/21/24 19: Hgb 12.70 g/dL (11.27-16.99) 07/21/24 19: Hct 39.6 % (36-47) 07/21/24 19: MCV 86.8 fl (85-98) 07/21/24 19: MCH 27.9 pg (27-33) 07/21/24 19: MCHC 32.1 g/dL (30-55) 07/21/24 19: RDW 15.3 % (12.1-15.1) H 07/21/24: Plt Count 359 10^3/cmm (157-399) 07/21/24 19: MPV 9.7 fL (7.4-10.4) 07/21/24 19: Neut % (Auto) 69.7 % 07/21/24: Lymph % (Auto) 20.6 % 07/21/24 19: [place] % (Auto) 8.2 % 07/21/24 19: Eos % (Auto) 0.7 % 07/21/24: Baso % (Auto) 0.5 % 07/21/24: Neut # (Auto) 8.50 10^3/uL (1.8-7.7) H 07/21/24: Lymph # (Auto) 2.5 10^3/uL (0.8-4.8) 07/21/24: [place] # (Auto) 1.0 10^3/uL (0.2-0.9) H 07/21/24 19: Eos # (Auto) 0.1 10^3/uL (0.0-0.8) 07/21/24: Baso # (Auto) 0.1 10^3/uL (0.0-0.1) 07/21/24: Nucleated RBC % (auto) 0 % 07/21/24: Nucleated RBCs # 0.0 /100WBC 07/21/24 19: Sodium 137 mmol/L (136-145) 07/21/24 19: Potassium 3.9 mmol/L (3.5-5.1) 07/21/24: Chloride 103 mmol/L (98-107) 07/21/24 19: Carbon Dioxide 22 mmol/L (22-29) 07/21/24 19: Anion Gap 15.9 (5-19) 07/21/24 19: BUN 24 mg/dL (8-23) H 07/21/24: Creatinine 0.5 mg/dL (0.5-0.9) 07/21/24 19:29 GFR Calculation Not Reportable 07/21/24 19: Glucose 96 mg/dL (65-115) 07/21/24 19:29 Calculated Osmolality 288 mOsm/kg (285-295) 07/21/24 19: Calcium 9.5 mg/dL (8.5-10.5) 07/21/24 19:29 Total Bilirubin 0.3 mg/dL (0.15-1.2) 07/21/24 19: AST 17 U/L (0-32) 07/21/24 19:29 ALT 13 U/L (0-33) 07/21/24 19:29 Alkaline Phosphatase 78 U/L (35-105) 07/21/24 19: Total Protein 6.3 g/dL (6.6-8.7) L 07/21/24: Albumin 4.1 g/dL (3.5-5.2) 07/21/24: Globulin 2.2 g/dL (1.3-4.6) 07/21/24 19: Serum Ketones Negative (Negative) 07/21/24 19:29 All radiology interpretation(s) finalized by discharge Discharge Plan Discharge Patient Disposition: Home Clinical Impression: Headache, migraine Qualifiers: Migraine type: migraine (< 15 days per month) with aura Status migrainosus presence: without status migrainosus Intractability: not intractable Qualified Code(s): G43.109 - Migraine with aura, not intractable, without status migrainosus Condition: Stable Prescriptions: No Action metformin 850 mg tablet 850 mg PO DAILY lisinopril 20 mg tablet 20 mg PO DAILY Januvia 25 mg tablet 25 mg PO DAILY acetaminophen [Tylenol] 325 mg capsule 325 mg PO QID PRN Discharge Orders: Discharge ED (Routine); Ordered 07/21/24 Ordered By: Wale Villavicencio Patient Instructions: Migraine Headache (ED) Activity Restrictions/Additional Instructions: Your blood glucose today was normal as well as the rest of your workup here in the emergency department. Please take [id number] Excedrin Migraine for your headaches, and continue taking your medications at home. Please follow-up with your primary care provider back in [place], and I hope your headache improves soon. Coding Level of Care Code ED [employer] Care Manager for Magno Berrios
[2024-07-21 19:41] LABS: Basophils # 0.1 10^3/uL (0.0-0.1); Basophils % 0.5 %; Eosinophils # 0.1 10^3/uL (0.0-0.8); Eosinophils % 0.7 %; Hematocrit 39.6 % (36-47); Lymphocytes # 2.5 10^3/uL (0.8-4.8); Lymphocytes % 20.6 %; Mean Corpuscular HGB Conc 32.1 g/dL (30-55); Mean Corpuscular Hemoglobin 27.9 pg (27-33); Mean Corpuscular Volume 86.8 fl (85-98); Mean Platelet Volume 9.7 fL (7.4-10.4); Monocytes % 8.2 %; Neutrophils % 69.7 %; Nucleated Red Blood Cells % 0 %; Platelet Count 359 10^3/cmm (157-399); Red Blood Count 4.56 10^6/uL (3.85-5.65); Red Cell Distribution Width 15.3 % (12.1-15.1); White Blood Count 12.19 10^3/uL (3.29-11.43)
[2024-07-21 19:51] LABS: Ketone (Acetest) Serum Negative (Negative)
[2024-07-21 19:54] VITALS: BP 132/67; PULSE 88; RESP 16; O2SAT 99
[2024-07-21 19:59] LABS: Alanine Aminotransferase 13 U/L (0-33); Albumin Level 4.1 g/dL (3.5-5.2); Alkaline Phosphatase 78 U/L (35-105); Anion Gap 15.9 (5-19); Aspartate Amino Transferase 17 U/L (0-32); Blood Urea Nitrogen 24 mg/dL (8-23); Calcium 9.5 mg/dL (8.5-10.5); Carbon Dioxide 22 mmol/L (22-29); Chloride 103 mmol/L (98-107); Creatinine Clr Calc Pharmacy 46.2001; Globulin 2.2 g/dL (1.3-4.6); Glucose 96 mg/dL (65-115); Osmolality Calculated 288 mOsm/kg (285-295); Potassium 3.9 mmol/L (3.5-5.1); Sodium 137 mmol/L (136-145); Total Bilirubin 0.3 mg/dL (0.15-1.2); Total Protein 6.3 g/dL (6.6-8.7)
[2024-07-21 20:59] VITALS: BP 138/65; PULSE 89; RESP 14; O2SAT 96
[2024-07-23 05:52] LABS: Glucose Point of Care 110 mg/dL (70-110)
== END 2024-07-21 21:09 | disposition home or self-care (01) ==
PROVIDERS: Emergency Medicine; Emergency Provider Physician Assistant
DX: G43.109 Migraine with aura, not intractable, without status migrainosus (principal); Z79.84 Long term (current) use of oral hypoglycemic drugs
CPT/HCPCS: 36416; 70450; 80053; 81000; 82009; 82962; 85025; 99284

== ENCOUNTER → 2025-01-16 14:13 | Outpatient (BNVA) | payer MEDICARE, SELFPAY | PROVIDERS: Visit Provider Emergency Medicine | DX: B34.9 Viral infection, unspecified (principal); J02.9 Acute pharyngitis, unspecified | CPT/HCPCS: 87071; 87400; 87880 ==

== ENCOUNTER 2025-08-01 18:30 | Emergency (ER) | payer MEDICARE, SELFPAY ==
[2025-08-01 18:34] VITALS: BP 161/76; PULSE 75; TEMP 36.9; O2SAT 98
--- NOTE | 2025-08-01 18:57 | CTR_ITS ---
PROCEDURE INFORMATION: Exam: CT Abdomen And Pelvis With Contrast Exam date and time: 08/01/2025 7:30 PM Age: 74 years old Clinical indication: Abdominal pain; Localized; Right upper quadrant (ruq); Ruq pain with nausea; Additional info: Epigastric pain TECHNIQUE: Imaging protocol: Computed tomography of the abdomen and pelvis with contrast. Radiation optimization: All CT scans at this facility use at least one of these dose optimization techniques: automated exposure control; mA and/or kV adjustment per patient size (includes targeted exams where dose is matched to clinical indication); or iterative reconstruction. Contrast material: OMNI 350; Contrast volume: 80 ml; Contrast route: INTRAVENOUS (IV); COMPARISON: No relevant prior studies available. RADIATION DOSE METRICS: Total DLP (mGy-cm): 375.84 FINDINGS: Lungs: Bibasilar atelectasis. Liver: Normal. No mass. Gallbladder and biliary ducts: Normal. No calcified stones. No ductal dilation. Pancreas: Normal. No ductal dilation. Spleen: Normal. No splenomegaly. Adrenal glands: Normal. No mass. Kidneys and ureters: Scattered hypoattenuating foci in both kidneys which are too small to characterize, likely simple cysts. Stomach and bowel: Diverticulosis most prominent in the sigmoid colon without evidence of diverticulitis. Appendix: No evidence of appendicitis. Intraperitoneal space: Unremarkable. No free air. No significant fluid collection. Vasculature: Unremarkable. No abdominal aortic aneurysm. Lymph nodes: Unremarkable. No enlarged lymph nodes. Urinary bladder: Unremarkable as visualized. Reproductive: Right adnexal complex cyst measuring 1.8 cm incompletely characterized on this examination. Consider further evaluation with pelvic MRI. Bones/joints: Multilevel degenerative changes of the thoracolumbar spine. Soft tissues: Unremarkable. Other findings: No acute abnormality in the abdomen or pelvis. CT/CT abdomen pelvis w con* [id number] IMPRESSION: 1. No acute abnormality in the abdomen or pelvis. 2. Diverticulosis most prominent in the sigmoid colon without evidence of diverticulitis. 3. Right adnexal complex cyst measuring 1.8 cm incompletely characterized on this examination. Consider further evaluation with pelvic MRI. COMMENTS: Consistent with the [employer]'s Incidental Findings Committee white paper (J Am Jessica Radiol 2018): Any incidental renal lesion less than 1 cm or classified as too small to characterize, or any incidental cystic renal lesion characterized as simple-appearing, is likely benign. No follow-up imaging is recommended for these lesions per consensus recommendations based on imaging criteria.
--- NOTE | 2025-08-01 18:57 | USR_ITS ---
PROCEDURE INFORMATION: Exam: US Abdomen, Limited; Right Upper Quadrant Exam date and time: 08/01/2025 7:39 PM Age: 74 years old Clinical indication: Abdominal pain; Localized; Right upper quadrant (ruq); Additional info: Epigastric ruq pain TECHNIQUE: Imaging protocol: Real time ultrasound of the abdomen with image documentation. Limited exam focused on the right upper quadrant. COMPARISON: CT abdomen pelvis w con* [id number] 08/01/2025 7:30 PM FINDINGS: Liver: No suspicious liver lesions. No ascites. Normal liver size measuring 13.8 cm. Gallbladder: No gallbladder wall thickening or pericholecystic fluid. No evidence of acute cholecystitis. Gallbladder wall thickness is 2 mm. Biliary ducts: Normal caliber of the common bile duct measures 4 mm. Pancreas: Visualized pancreas is unremarkable. Right kidney: Mild right pelviectasis without geoff hydronephrosis. The right kidney measures 9.1 cm in length with normal perfusion. No nephrolithiasis. Aorta: Aorta is normal in caliber measuring 1.2 cm. Inferior vena cava: IVC is patent. Portal venous: Portal vein is patent with normal phasicity. Other findings: No evidence of acute abnormality. US/US gall bladder [id number] IMPRESSION: No evidence of acute abnormality.
--- NOTE | 2025-08-01 18:58 | W.ED.ABDPA2 ---
Documented by User: Brayan Boo DO 08/02/25 01:33 HPI - Abdominal Pain General: Chief Complaint: Abdominal Pain Stated Complaint: sharp pain R side upper abd Time Seen by Provider: 08/01/25 18:40 History of Present Illness: Patient is a 74-year-old female presenting with abdominal pain localized to the right side and middle of the abdomen. She reports the pain has been occurring on and off for approximately two months, with the current episode persisting for two weeks. The pain is described as constant during this current episode. The patient reports feeling like she needs to have a bowel movement but is unable to do so. She experiences relief when she is able to have a bowel movement. Patient describes a sensation of 'inflammation' in the abdomen. She denies vomiting, fever, or blood in stool. Her bowel movements are described as 'berries' in appearance, suggesting possible scybalous stools. No other family members have reported similar symptoms. Patient denies recent antibiotic use. Related Data Home Medications ?Medication ?Instructions ?Recorded ?Confirmed acetaminophen 325 mg capsule 325 mg PO QID PRN 07/21/24 01/16/25 (Tylenol) lisinopril 20 mg tablet 20 mg PO DAILY 07/21/24 01/16/25 metformin 850 mg tablet 850 mg PO DAILY 07/21/24 01/16/25 sitagliptin phosphate 25 mg tablet 25 mg PO DAILY 07/21/24 01/16/25 (Januvia) Previous Rx's ?Medication ?Instructions ?Recorded albuterol sulfate 90 mcg/actuation 2 puff inhalation Q6H PRN 01/16/25 aerosol inhaler shortness of breath or wheezing #8.5 grams zgvnlsywdqisvax-fjgoqgmzxpzpmna-JK 5 ml PO Q6H PRN cold symptoms #118 01/16/25 2 mg-30 mg-10 mg/5 mL oral syrup mL (Bromfed DM) doxycycline hyclate 100 mg tablet 100 mg PO BID 7 days #14 tabs 01/16/25 pantoprazole 40 mg tablet,delayed 40 mg PO BID #60 tabs 08/01/25 release Allergies Allergy/AdvReac Type Severity Reaction Status Date / Time No Known Allergies Allergy Verified 08/01/25 18:38 PFS ED PFSH: Medical History No significant past medical history Surgical History No significant past surgical history Social History Smoking and tobacco/nicotine status: never used tobacco/nicotine Physical Exam Const: COMMON NORMALS: no acute distress GENERAL APPEARANCE: cooperative; not ill appearing and not frail appearing HENMT: COMMON NORMALS: normocephalic, atraumatic and Normal external nose present HEAD & SCALP: normocephalic and atraumatic FACE & SINUS: normal facial exam and face symmetric NOSE: Normal external nose present Eye: COMMON NORMALS: Equal, round and reactive pupils present and EOMs intact bilaterally PUPIL: Yes Equal, round and reactive pupils present Neck/C-Spine: GENERAL: Yes trachea midline Chest: CHEST: Yes Symmetrical chest wall rise Resp: COMMON NORMALS: normal respiratory effort, No retractions, No use of accessory muscles and clear to auscultation bilaterally AUSCULTATION: clear to auscultation bilaterally Cardio: COMMON NORMALS: regular rate and regular rhythm RATE: regular rate RHYTHM: regular rhythm GI: COMMON NORMALS: Normal to inspection, nondistended, normoactive bowel sounds present and Soft to palpation PALPATION: Yes Soft to palpation, Yes Tenderness to palpation present (GI) (epigastric) and No Guarding due to palpation present (GI) Extremity: COMMON NORMALS: no pedal edema Neuro: NELSON COMA SCALE: document GCS findings Nelson coma scale eye opening: Spontaneous [place] coma scale verbal response: Orientated [place] coma scale motor response: Obey commands [place] coma scale total score: 15 SENSORY EXAM: Yes extremities (intact) Psych: COMMON NORMALS: speech normal SPEECH: Yes normal speech Skin: COMMON NORMALS: no rashes or lesions noted GENERAL SKIN EXAM: no rashes or lesions noted Course Vital Signs: Vital signs: Vital Signs Temperature 98.5 F 08/01/25 18:34 Pulse Rate 72 08/01/25 20:08 Blood Pressure 150/72 08/01/25 20:08 Pulse Oximetry 99 08/01/25 20:08 Oxygen Delivery Me thod Room Air 08/01/25 20:08 MDM - Abdominal Pain Medical Decision Making Patient is mildly hypertensive. Other labs are stable. CBC is normal. BMP is normal. Liver enzymes are normal. Lipase is 48. Urinalysis is negative. Lactic acid is 1.3. CRP is 3. CT reveals no acute abnormality. Gallbladder ultrasound reveals no acute abnormality. In the absence of abnormality on imaging, gastritis is most likely in the differential. She will be treated for gastritis. She will follow-up with her physician, when returning to [place] in 10 days or so. Images were printed for the patient so that she may carry them with her for further outpatient workup and follow-up. She knows to return for any worsening symptoms in the meantime. Lab Data 08/01/25 19:00 08/01/25 19:00 Labs/Radiology: Radiology Impressions Abdomen/Pelvis CT 08/01/25 18:57 IMPRESSION: 1. No acute abnormality in the abdomen or pelvis. 2. Diverticulosis most prominent in the sigmoid colon without evidence of diverticulitis. 3. Right adnexal complex cyst measuring 1.8 cm incompletely characterized on this examination. Consider further evaluation with pelvic MRI. COMMENTS: Consistent with the [employer]'s Incidental Findings Committee white paper (J Am Jessica Radiol 2018): Any incidental renal lesion less than 1 cm or classified as too small to characterize, or any incidental cystic renal lesion characterized as simple-appearing, is likely benign. No follow-up imaging is recommended for these lesions per consensus recommendations based on imaging criteria. Gallbladder Ultrasound 08/01/25 18:57 IMPRESSION: No evidence of acute abnormality. Laboratory Results WBC 10.95 10^3/uL (3.29-11.43) 08/01/25 19:00 RBC 4.29 10^6/uL (3.85-5.65) 08/01/25 19:00 Hgb 11.70 g/dL (11.27-16.99) 08/01/25 19:00 Hct 34.5 % (36-47) L 08/01/25 19:00 MCV 80.4 fl (85-98) L 08/01/25 19:00 MCH 27.3 pg (27-33) 08/01/25 19:00 MCHC 33.9 g/dL (30-55) 08/01/25 19:00 RDW 14.9 % (12.1-15.1) 08/01/25 19:00 Plt Count 366 10^3/cmm (157-399) 08/01/25 19:00 MPV 9.4 fL (7.4-10.4) 08/01/25 19:00 Neut % (Auto) 59.3 % 08/01/25 19:00 Lymph % (Auto) 28.7 % 08/01/25 19:00 [place] % (Auto) 9.8 % 08/01/25 19:00 Eos % (Auto) 1.5 % 08/01/25 19:00 Baso % (Auto) 0.5 % 08/01/25 19:00 Neut # (Auto) 6.50 10^3/uL (1.8-7.7) 08/01/25 19:00 Lymph # (Auto) 3.1 10^3/uL (0.8-4.8) 08/01/25 19:00 [place] # (Auto) 1.1 10^3/uL (0.2-0.9) H 08/01/25 19:00 Eos # (Auto) 0.2 10^3/uL (0.0-0.8) 08/01/25 19:00 Baso # (Auto) 0.1 10^3/uL (0.0-0.1) 08/01/25 19:00 Nucleated RBC % (auto) 0 % 08/01/25 19:00 Nucleated RBCs # 0.0 /100WBC 08/01/25 19:00 Sodium 138 mmol/L (136-145) 08/01/25 19:00 Potassium 3.8 mmol/L (3.5-5.1) 08/01/25 19:00 Chloride 102 mmol/L (98-107) 08/01/25 19:00 Carbon Dioxide 26 mmol/L (22-29) 08/01/25 19:00 Anion Gap 13.8 (5-19) 08/01/25 19:00 BUN 11 mg/dL (8-23) 08/01/25 19:00 Creatinine 0.5 mg/dL (0.5-0.9) 08/01/25 19:00 GFR Calculation Not Reportable 08/01/25 19:00 Glucose 120 mg/dL (65-115) H 08/01/25 19:00 Calculated Osmolality 287 mOsm/kg (285-295) 08/01/25 19:00 Lactic Acid 1.3 mmol/L (0.5-2.2) 08/01/25 19:00 Calcium 9.3 mg/dL (8.5-10.5) 08/01/25 19:00 Total Bilirubin 0.3 mg/dL (0.15-1.2) 08/01/25 19:00 AST 19 U/L (0-32) 08/01/25 19:00 ALT 8 U/L (0-33) 08/01/25 19:00 Alkaline Phosphatase 116 U/L (35-105) H 08/01/25 19:00 C-Reactive Protein 3.0 mg/L (0.0-4.9) 08/01/25 19:00 Total Protein 7.4 g/dL (6.6-8.7) 08/01/25 19:00 Albumin 4.2 g/dL (3.5-5.2) 08/01/25 19:00 Globulin 3.2 g/dL (1.3-4.6) 08/01/25 19: Lipase 48 U/L (13-60) 08/01/25 19:00 Urine Color Yellow (Yellow) 08/01/25 19:22 Urine Appearance Clear (CLEAR) 08/01/25 19:22 Urine pH 6.5 (5-7) 08/01/25: Ur Specific [place] 1.004 (1.005-1.030) L 08/01/25 19: Urine Protein Negative (Negative) 08/01/25 19: Urine Glucose (UA) Negative (Normal) 08/01/25 19: Urine Ketones Negative (Negative) 08/01/25: Urine Blood Negative (Negative) 08/01/25: Urine Nitrate Negative (Negative) 08/01/25 19: Urine Bilirubin Negative (Negative) 08/01/25 19: Urine Urobilinogen 0.2 mg/dL (Negative) 08/01/25 19: Ur Leukocyte Esterase Negative (Negative) 08/01/25 19: Urine RBC 0-2 /hpf (0-2) 08/01/25 19:22 Urine WBC 0-5 /hpf (0-5) 08/01/25 19:22 Ur Squamous Epith Cells 0-5 /hpf (0-5) 08/01/25 19:22 Amorphous Sediment Not Reportable 08/01/25 19:22 Urine Bacteria None seen /hpf (NONE) 08/01/25 19:22 Hyaline Casts 0-4 /lpf H 08/01/25 19:22 All radiology interpretation(s) finalized by discharge Discharge Plan Discharge Patient Disposition: Home Clinical Impression: Abdominal pain, Gastritis Condition: Stable Prescriptions: New pantoprazole 40 mg tablet,delayed release (DR/EC) 40 mg PO BID Qty: 60 0RF No Action metformin 850 mg tablet 850 mg PO DAILY lisinopril 20 mg tablet 20 mg PO DAILY Januvia 25 mg tablet 25 mg PO DAILY acetaminophen [Tylenol] 325 mg capsule 325 mg PO QID PRN albuterol sulfate 90 mcg/actuation HFA aerosol inhaler 2 puff inhalation Q6H PRN (Reason: shortness of breath or wheezing) Qty: 8.5 0RF thyemrfkqxjpwjh-xvxhvlyeh-US [Bromfed DM] 2-30-10 mg/5 mL syrup 5 ml PO Q6H PRN (Reason: cold symptoms) Qty: 118 0RF doxycycline hyclate 100 mg tablet 100 mg PO BID 7 Days Qty: 14 0RF Discharge Orders: Discharge ED (Routine); Ordered 08/01/25 Ordered By: Brayan Boo Patient Instructions: Gastritis (ED), Abdominal Pain (ED), Opioid Safety, Pain Management, Patient Portal & [facility]is Instructions Activity Restrictions/Additional Instructions: Return for worsening pain despite treatment, development of fever, vomiting liquids or medications, any other concerning symptoms. Follow-up with your doctor when you get back to [place]. Images have been printed for you to give it to them. Medication is directed Print Language: Nauruan Coding Level of Care Code ED Director [employer] for [facility] Fwd Documented by User: Roxana Greenwood DO 08/01/25 20:15 HPI - Abdominal Pain General: Chief Complaint: Abdominal Pain Stated Complaint: sharp pain R side upper abd Time Seen by Provider: 08/01/25 18:40 Related Data Home Medications ?Medication ?Instructions ?Recorded ?Confirmed acetaminophen 325 mg capsule 325 mg PO QID PRN 07/21/24 01/16/25 (Tylenol) lisinopril 20 mg tablet 20 mg PO DAILY 07/21/24 01/16/25 metformin 850 mg tablet 850 mg PO DAILY 07/21/24 01/16/25 sitagliptin phosphate 25 mg tablet 25 mg PO DAILY 07/21/24 01/16/25 (Januvia) Previous Rx's ?Medication ?Instructions ?Recorded albuterol sulfate 90 mcg/actuation 2 puff inhalation Q6H PRN 01/16/25 aerosol inhaler shortness of breath or wheezing #8.5 grams wynroumrxnyffip-owqgfqvmoojblrn-JO 5 ml PO Q6H PRN cold symptoms #118 01/16/25 2 mg-30 mg-10 mg/5 mL oral syrup mL (Bromfed DM) doxycycline hyclate 100 mg tablet 100 mg PO BID 7 days #14 tabs 01/16/25 pantoprazole 40 mg tablet,delayed 40 mg PO BID #60 tabs 08/01/25 release Allergies Allergy/AdvReac Type Severity Reaction Status Date / Time No Known Allergies Allergy Verified 08/01/25 18:38 [facility] ED PFSH: Medical History No significant past medical history Surgical History No significant past surgical history Social History Smoking and tobacco/nicotine status: never used tobacco/nicotine Physical Exam Neuro: NELSON COMA SCALE: document GCS findings [place] coma scale total score: 15 Course Vital Signs: Vital signs: Vital Signs Temperature 98.5 F 08/01/25 18:34 Pulse Rate 72 08/01/25 20:08 Blood Pressure 150/72 08/01/25 20:08 Pulse Oximetry 99 08/01/25 20:08 Oxygen Delivery Me thod Room Air 08/01/25 20:08 MDM - Abdominal Pain Lab Data 08/01/25 19:00 08/01/25 19:00 Labs/Radiology: Radiology Impressions Abdomen/Pelvis CT 08/01/25 18:57 IMPRESSION: 1. No acute abnormality in the abdomen or pelvis. 2. Diverticulosis most prominent in the sigmoid colon without evidence of diverticulitis. 3. Right adnexal complex cyst measuring 1.8 cm incompletely characterized on this examination. Consider further evaluation with pelvic MRI. COMMENTS: Consistent with the [employer]'s Incidental Findings Committee white paper (J Am Jessica Radiol 2018): Any incidental renal lesion less than 1 cm or classified as too small to characterize, or any incidental cystic renal lesion characterized as simple-appearing, is likely benign. No follow-up imaging is recommended for these lesions per consensus recommendations based on imaging criteria. Gallbladder Ultrasound 08/01/25 18:57 IMPRESSION: No evidence of acute abnormality. Laboratory Results WBC 10.95 10^3/uL (3.29-11.43) 08/01/25 19:00 RBC 4.29 10^6/uL (3.85-5.65) 08/01/25 19:00 Hgb 11.70 g/dL (11.27-16.99) 08/01/25 19:00 Hct 34.5 % (36-47) L 08/01/25 19:00 MCV 80.4 fl (85-98) L 08/01/25 19:00 MCH 27.3 pg (27-33) 08/01/25 19:00 MCHC 33.9 g/dL (30-55) 08/01/25 19:00 RDW 14.9 % (12.1-15.1) 08/01/25 19:00 Plt Count 366 10^3/cmm (157-399) 08/01/25 19:00 MPV 9.4 fL (7.4-10.4) 08/01/25 19:00 Neut % (Auto) 59.3 % 08/01/25 19:00 Lymph % (Auto) 28.7 % 08/01/25 19:00 [place] % (Auto) 9.8 % 08/01/25 19:00 Eos % (Auto) 1.5 % 08/01/25 19:00 Baso % (Auto) 0.5 % 08/01/25 19:00 Neut # (Auto) 6.50 10^3/uL (1.8-7.7) 08/01/25 19:00 Lymph # (Auto) 3.1 10^3/uL (0.8-4.8) 08/01/25 19:00 [place] # (Auto) 1.1 10^3/uL (0.2-0.9) H 08/01/25 19:00 Eos # (Auto) 0.2 10^3/uL (0.0-0.8) 08/01/25 19:00 Baso # (Auto) 0.1 10^3/uL (0.0-0.1) 08/01/25 19:00 Nucleated RBC % (auto) 0 % 08/01/25 19:00 Nucleated RBCs # 0.0 /100WBC 08/01/25 19:00 Sodium 138 mmol/L (136-145) 08/01/25 19:00 Potassium 3.8 mmol/L (3.5-5.1) 08/01/25 19:00 Chloride 102 mmol/L (98-107) 08/01/25 19:00 Carbon Dioxide 26 mmol/L (22-29) 08/01/25 19:00 Anion Gap 13.8 (5-19) 08/01/25 19:00 BUN 11 mg/dL (8-23) 08/01/25 19:00 Creatinine 0.5 mg/dL (0.5-0.9) 08/01/25 19:00 GFR Calculation Not Reportable 08/01/25 19:00 Glucose 120 mg/dL (65-115) H 08/01/25 19:00 Calculated Osmolality 287 mOsm/kg (285-295) 08/01/25 19:00 Lactic Acid 1.3 mmol/L (0.5-2.2) 08/01/25 19:00 Calcium 9.3 mg/dL (8.5-10.5) 08/01/25 19:00 Total Bilirubin 0.3 mg/dL (0.15-1.2) 08/01/25 19:00 AST 19 U/L (0-32) 08/01/25 19:00 ALT 8 U/L (0-33) 08/01/25 19:00 Alkaline Phosphatase 116 U/L (35-105) H 08/01/25 19:00 C-Reactive Protein 3.0 mg/L (0.0-4.9) 08/01/25 19:00 Total Protein 7.4 g/dL (6.6-8.7) 08/01/25 19:00 Albumin 4.2 g/dL (3.5-5.2) 08/01/25 19:00 Globulin 3.2 g/dL (1.3-4.6) 08/01/25 19:00 Lipase 48 U/L (13-60) 08/01/25 19:00 Urine Color Yellow (Yellow) 08/01/25 19:22 Urine Appearance Clear (CLEAR) 08/01/25 19:22 Urine pH 6.5 (5-7) 08/01/25 19:22 Ur Specific [place] 1.004 (1.005-1.030) L 08/01/25 19:22 Urine Protein Negative (Negative) 08/01/25 19:22 Urine Glucose (UA) Negative (Normal) 08/01/25 19: Urine Ketones Negative (Negative) 08/01/25 19: Urine Blood Negative (Negative) 08/01/25 19:22 Urine Nitrate Negative (Negative) 08/01/25 19:22 Urine Bilirubin Negative (Negative) 08/01/25 19:22 Urine Urobilinogen 0.2 mg/dL (Negative) 08/01/25 19:22 Ur Leukocyte Esterase Negative (Negative) 08/01/25 19:22 Urine RBC 0-2 /hpf (0-2) 08/01/25 19:22 Urine WBC 0-5 /hpf (0-5) 08/01/25 19:22 Ur Squamous Epith Cells 0-5 /hpf (0-5) 08/01/25 19:22 Amorphous Sediment Not Reportable 08/01/25 19:22 Urine Bacteria None seen /hpf (NONE) 08/01/25 19:22 Hyaline Casts 0-4 /lpf H 08/01/25 19:22 Discharge Plan Discharge Patient Disposition: Home Clinical Impression: Abdominal pain, Gastritis Condition: Stable Prescriptions: New pantoprazole 40 mg tablet,delayed release (DR/EC) 40 mg PO BID Qty: 60 0RF No Action metformin 850 mg tablet 850 mg PO DAILY lisinopril 20 mg tablet 20 mg PO DAILY Januvia 25 mg tablet 25 mg PO DAILY acetaminophen [Tylenol] 325 mg capsule 325 mg PO QID PRN albuterol sulfate 90 mcg/actuation HFA aerosol inhaler 2 puff inhalation Q6H PRN (Reason: shortness of breath or wheezing) Qty: 8.5 0RF mhdggeqeyrxrque-ffjtylobl-PI [Bromfed DM] 2-30-10 mg/5 mL syrup 5 ml PO Q6H PRN (Reason: cold symptoms) Qty: 118 0RF doxycycline hyclate 100 mg tablet 100 mg PO BID 7 Days Qty: 14 0RF Discharge Orders: Discharge ED (Routine); Ordered 08/01/25 Ordered By: Brayan Boo Patient Instructions: Gastritis (ED), Abdominal Pain (ED), Opioid Safety, Pain Management, Patient Portal & [facility] Instructions Activity Restrictions/Additional Instructions: Return for worsening pain despite treatment, development of fever, vomiting liquids or medications, any other concerning symptoms. Follow-up with your doctor when you get back to [place]. Images have been printed for you to give it to them. Medication is directed Print Language: Nauruan Coding Level of Care Code ED Director [employer] for Magno Berrios
[2025-08-01 19:08] LABS: Hematocrit 34.5 % (36-47); Hemoglobin 11.70 g/dL (11.27-16.99); Mean Corpuscular HGB Conc 33.9 g/dL (30-55); Mean Corpuscular Hemoglobin 27.3 pg (27-33); Mean Corpuscular Volume 80.4 fl (85-98); Nucleated Red Blood Cells % 0 %; Platelet Count 366 10^3/cmm (157-399); Red Blood Count 4.29 10^6/uL (3.85-5.65); White Blood Count 10.95 10^3/uL (3.29-11.43)
[2025-08-01 19:26] LABS: Alanine Aminotransferase 8 U/L (0-33); Albumin Level 4.2 g/dL (3.5-5.2); Alkaline Phosphatase 116 U/L (35-105); Anion Gap 13.8 (5-19); Aspartate Amino Transferase 19 U/L (0-32); Blood Urea Nitrogen 11 mg/dL (8-23); Calcium 9.3 mg/dL (8.5-10.5); Carbon Dioxide 26 mmol/L (22-29); Chloride 102 mmol/L (98-107); Globulin 3.2 g/dL (1.3-4.6); Glucose 120 mg/dL (65-115); Lipase 48 U/L (13-60); Osmolality Calculated 287 mOsm/kg (285-295); Potassium 3.8 mmol/L (3.5-5.1); Sodium 138 mmol/L (136-145); Total Protein 7.4 g/dL (6.6-8.7)
[2025-08-01 19:27] LABS: Lactic Sepsis W/Reflex 1.3 mmol/L (0.5-2.2)
[2025-08-01] MEDS: ondansetron 2 mg/ML SDV 2 mL 4 MG IVP (19:27)
[2025-08-01 19:31] LABS: Glucose Urine UA Negative (Normal); Nitrate Urine Negative (Negative); Specific Gravity, Urine 1.004 (1.005-1.030)
[2025-08-01] MEDS: iohexol 350 mg/mL 500 mL Btl (per mL) IV (19:32)
[2025-08-01 19:36] LABS: Add Urine Microscopic? YES
[2025-08-01 20:08] VITALS: BP 150/72; PULSE 72; O2SAT 99
[2025-08-01] MEDS: pantoprazole 40 mg SDV IVP (20:37)
== END 2025-08-01 20:47 | disposition home or self-care (01) ==
PROVIDERS: Emergency Provider Emergency Medicine
DX: K29.70 Gastritis, unspecified, without bleeding (principal); Z79.84 Long term (current) use of oral hypoglycemic drugs
CPT/HCPCS: 36415; 74177; 76705; 80053; 81001; 83605; 83690; 85025; 86140; 96374; 96375; 99285; J1885; J2405; J2470